=== PATIENT | male | born 1955 | race Caucasian/White ===

== ENCOUNTER → 2016-11-20 | Outpatient (CLI) | payer BC ==
[2016-11-20 17:18] LABS: BILIRUBIN,URINE NEGATIVE (NEG); CLARITY,URINE CLEAR (CLEAR); GLUCOSE, URINE (UA) NEGATIVE (NEG); LEUKOCYTE ESTERASE ,URINE NEGATIVE (NEG); NITRATE,URINE NEGATIVE (NEG); OCCULT BLOOD,URINE NEGATIVE (NEG); PH,URINE 5.5 (5.0-8.5); PROTEIN,URINE NEGATIVE (NEG); UROBILINOGEN,URINE 0.2 mg/dL (0.2)
[2016-11-20 17:44] LABS: URINE SAMPLE TYPE VOIDED SPECIMEN
[2016-11-20 17:45] LABS: RBC,URINE 0-1 /hpf
== END ==
LOC: LAB 15:04
PROVIDERS: ATTEND Internal Medicine
DX: I10 Essential (primary) hypertension (principal); I25.10 Atherosclerotic heart disease of native coronary artery without angina pectoris
CPT/HCPCS: 81001

== ENCOUNTER 2018-10-06 07:34 | Inpatient (IN) ==
[2018-10-06 06:35] LABS: BILIRUBIN,URINE NEGATIVE (NEG); CLARITY,URINE CLEAR (CLEAR); COLOR,URINE YELLOW (Y); GLUCOSE, URINE (UA) NEGATIVE (NEG); OCCULT BLOOD,URINE NEGATIVE (NEG); PH,URINE 5.5 (5.0-8.5); PROTEIN,URINE NEGATIVE (NEG); UROBILINOGEN,URINE 0.2 EU/dL (0.2)
[2018-10-06 06:47] LABS: URINE SAMPLE TYPE CLEAN CATCH URINE
[~2018-10-06 07:34] MED LIST: BUPIVACAINE SPINAL 7.5 MG/1 ML - 2 ML IV ONE; BUPivacaine Liposome/PF (Exparel) Inj 20ml vial INFIL ONE; CITRIC ACID/SODIUM CITRATE 30 ML CUP PO ONE; EPINEPHrine Inj (1:1,000) 1 mg/ml amp ONE; FAMOTIDINE 20 MG/2 ML VIAL IVP ONE; Gentamicin Inj 40 MG/ML VIAL ONE; HEPARIN 10,000 UNIT/1 ML ONE; Ketorolac Inj 30 MG, Morphine Inj (Ortho Cocktail) 5 MG, BUPivacaine Inj 0.25% PF 150 MG SPLASH ONE; LIDOCAINE W/ SODIUM BICARB 0.5 ML SYR ONE; LIDOCAINE W/ SODIUM BICARB 0.5 ML SYR SUBD ONE; LORazepam 2 MG/1 ML VIAL ONE; Lactated Ringers 1,000 ML PRIMARY IV ONE; Lactated Ringers 1,000 ML PRIMARY IV SCH; MIDAZOLAM 5 MG/1 ML ONE; MORPHINE SULFATE/PF 10 MG/10 ML AMPULE ONE; Nasal Sanitizer POPSWAB ampule 3 AMP (Nozin) PREOP DOSE ENOS SCH; Sodium Chloride 0.9% vial 40 ML ONE; Tranexamic Acid 3,000 MG in Sodium Chloride 0.9% 100 ML IRRIG ONE; ceFAZolin Inj 2gm (Premix) 2 GM/50 ML BAG IV ONE; fentaNYL Inj 250 MCG/5 ML VIAL ONE
[2018-10-06] MEDS ORDERED: Lactated Ringers 1,000 ML PRIMARY IV ONE ×2 (07:43→09:38)
[2018-10-06] MEDS ORDERED: PROPOFOL 10 MG/1 ML (200 MG/20 ML) VIAL IV ONE ×3 (08:01→10:16)
[2018-10-06] MEDS ORDERED: Sodium Chloride 0.9% 500 ML ONE ×2 (08:14→10:28)
[2018-10-06] MEDS ORDERED: TRANEXAMIC ACID 1,000 MG / 10 ML VIAL ONE (08:28)
[2018-10-06] MEDS ORDERED: ePHEDrine Inj 50 MG/ML AMP ONE ×2 (08:47→10:07)
[2018-10-06 11:23] LABS: Hematocrit [HCT] 37.9 % (42.0-52.0); Hemoglobin [HGB] 12.9 g/dL (14.0-18.0)
--- NOTE | 2018-10-06 11:36 | ORTHO.OP ---
- - -: See Dictated Operative Report Procedure Codes - Hip Procedures Primary Hip Procedure: 16383 : BECCA (sylvester preston and darren Aguirre MD assisted)
--- NOTE | 2018-10-06 12:16 | CONSULT ---
Consult Note - Consult Reason for Consult: PostOp Consulation : Ortho (cad) Primary Care Provider: Xenia Kauffman MD - History of Present Illness History of Present Illness: This very nice 62-year-old gentleman with past medical history significant for coronary artery disease in the past and a subdural hematoma secondary to horse accident. Comes in for severe right hip pain and underwent right total hip replacement. Patient denies any chest pain nausea vomiting and is doing pretty good postop Past Medical History Medical History: Hypertension, history of asthma Surgical History: Craniotomy for subdural hematoma Pertinent Family History: No premature heart disease in his family Tobacco Use: Never Smoker In the Past 12 Months, Have Used or Abuse Any of the Following Substance: None Review of Systems - Review of Systems All Systems: Reviewed & No Additional Complaints Except as Stated - Respiratory Respiratory: DENIES: Negative System Review, Cough, Sputum, Dyspnea At Rest, Dyspnea with Exertion, Pleuritic Pain, Hemoptysis, Wheezing, Other, See HPI - Cardiovascular Cardiovascular: DENIES: Negative System Review, Chest Pain, Edema, Syncope, Palpitations, Orthopnea, Paroxysmal Nocturnal Dyspnea, Other, See HPI - Gastrointestinal Gastrointestinal / Abdominal: DENIES: Negative System Review, Nausea, Vomiting, Diarrhea, Constipation, Abdominal Pain, Bloody Stool, Poor Appetite, Heartburn, Regurgitation, Bloating, Lactose Intolerance, Melena, Bright Red Blood per Rectum, Other, See HPI Medication / Allergies Home Medications: Home Medications Medication Instructions Recorded Confirmed Type Zinc 1 tab PO DAILY 07/21/15 10/05/18 History sildenafil (antihypertensive) 20 20 mg PO QDAY #30 tab 12/25/17 10/05/18 Rx mg tablet allopurinol 300 mg tablet 300 mg PO DAILY #90 tab-cap 02/05/18 10/05/18 Rx amlodipine 5 mg tablet 5 mg PO DAILY #90 tab-cap 02/05/18 10/05/18 Rx metoprolol succinate ER 100 mg 100 mg PO DAILY #90 tab-cap 02/05/18 10/05/18 Rx tablet,extended release 24 hr montelukast 10 mg tablet 10 mg PO DAILY #90 tab-cap 02/05/18 10/05/18 Rx tamsulosin 0.4 mg capsule 0.4 mg PO DAILY #90 tab-cap 02/05/18 10/05/18 Rx terazosin 10 mg capsule 10 mg PO DAILY #90 tab-cap 02/05/18 10/05/18 Rx atorvastatin 40 mg tablet 40 mg PO DAILY #90 tab 02/10/18 10/05/18 Rx cetirizine 10 mg tablet 10 mg PO QD #90 tab-cap 02/10/18 10/05/18 Rx ranitidine 75 mg tablet 75 mg PO DAILY #90 tab-cap 02/10/18 10/05/18 Rx aspirin 81 mg tablet,delayed 81 mg PO QDAY tab 02/11/18 10/06/18 History release fluticasone 50 mcg/actuation nasal 1 spray INASL QDAY PRN 02/11/18 10/05/18 History spray,suspension olopatadine 0.2 % eye drops 1 drp OP Q24H 02/11/18 10/05/18 History valacyclovir 1 gram tablet 1,000 mg PO BID #20 tab 06/01/18 10/05/18 Rx Allergies/Adverse Reactions: Allergies Allergy/AdvReac Type Severity Reaction Status Date / Time No Known Allergies Allergy Verified 09/15/18 10:10 Exam - Vitals Vital Signs: Vital Signs Temperature 97.8 F Pulse Rate 59 Respiratory Rate 14 Blood Pressure 122/79 Pulse Ox 96 Oxygen Flow Rate RA Height 5 ft 11 in Weight 229 lb - General General Appearance: No Acute Distress, Cooperative - Eye Eye Exam: POSITIVE: Normal Appearance, PERRL, EOMI, No Scleral Icterus - Respiratory Respiratory Exam: POSITIVE: Clear to Auscultation - Bilaterally, Breathing Non Labored, Normal To Percussion, Normal to Percussion and Palpation - Cardiovascular Cardiovascular Exam: POSITIVE: RRR, No Murmur, No Clicks, No Gallops, No Rubs, PMI Non-Displaced - GI/Abdominal GI/Abdominal Exam: POSITIVE: Normal Bowel Sounds, Non Tender, Non Distended, Soft, No Masses, No Hepatomegaly, No Splenomegaly, No Organomegaly - Extremities Extremities Exam: POSITIVE: No Clubbing Present, No Edema Present, No Cyanosis Present Results - Labs CBC and BMP: 10/06/18 11:10 Assessment and Plan - Patient Problems (1) Status post right hip replacement Current Visit: Yes Status: Acute Comment: Defer to Dr. Leon for postop care PT OT and anticoagulation Code(s): Z96.641 - Presence of right artificial hip joint (2) Coronary arteriosclerosis Current Visit: No Status: Chronic Onset Date: 04/03/16 Comment: Stable continue current medications Code(s): I25.10 - Atherosclerotic heart disease of [place] coronary artery without angina pectoris (3) Essential hypertension Current Visit: No Status: Chronic Onset Date: 04/03/16 Comment: Continue current medications Code(s): I10 - Essential (primary) hypertension
[2018-10-06] MEDS ORDERED: ACETAMINOPHEN 325 MG TABLET PO PRN (12:31)
[2018-10-06] MEDS ORDERED: Prochlorperazine Tab 10 MG TAB PO PRN (12:31)
[2018-10-06] MEDS ORDERED: ONDANSETRON 4 MG/2 ML VIAL IVP PRN (12:31)
[2018-10-06] MEDS ORDERED: CALCIUM CARBONATE 500 MG (TUMS) CHEWABLE TABLET PO PRN (12:31)
[2018-10-06] MEDS ORDERED: Montelukast Tab 10 MG TAB PO SCH (12:31)
[2018-10-06] MEDS ORDERED: RANITIDINE HCL 75 MG PO SCH (12:31)
[2018-10-06] MEDS ORDERED: diphenhydrAMINE 25 MG CAPSULE PO PRN (12:31)
[2018-10-06] MEDS ORDERED: SILDENAFIL CITRATE 20 MG PO SCH (12:31)
[2018-10-06] MEDS ORDERED: ZINC PO SCH (12:31)
[2018-10-06] MEDS ORDERED: MAG HYDROX/AL HYDROX/SIMETH 30 ML SUSP PO PRN (12:31)
[2018-10-06] MEDS ORDERED: BISACODYL 10 MG SUPPOSITORY RECTAL PRN (12:31)
[2018-10-06] MEDS ORDERED: Ondansetron ODT Tab 8 MG TAB PO PRN (12:31)
[2018-10-06] MEDS ORDERED: AmLODIPine Tab 5 MG TABLET PO SCH (12:31)
[2018-10-06] MEDS ORDERED: VALACYCLOVIR HCL 1000 MG PO SCH (12:31)
[2018-10-06] MEDS ORDERED: METOPROLOL SUCCINATE 100 MG SR 24H TABLET PO SCH ×2 (12:31→16:30)
[2018-10-06] MEDS ORDERED: OLOPATADINE HCL OP SCH (12:31)
[2018-10-06] MEDS ORDERED: BISACODYL 5 MG TABLET PO PRN (12:31)
[2018-10-06] MEDS ORDERED: TAMSULOSIN 0.4 MG CAPSULE PO SCH (12:31)
[2018-10-06] MEDS ORDERED: ALLOPURINOL 300 MG TABLET PO SCH (12:31)
--- NOTE | 2018-10-06 12:57 | CRNA.PROCE ---
Central Neuraxis Block Placemt - - Safety Measures: Time Out Taken, Site Verified - - Type of Block: Subarachnoid (SAB in preop [id number]) Reason for Block: Surgical, Analgesia Moniters Used During Block: EKG, SPO2, NIBP Sedation Used - Enter Amount Used in Comment Field: Midazolam (mg): Yes (2), Fentanyl (mcg): Yes (50) Positioning: Sitting Skin Prep Used: ChloroPrep Draped: Yes Skin Infiltration - Enter Amount Used in Comment Field: 1% Xylocaine with Bicarb (mL): Yes (.5), 1% Xylocaine (mL): Yes (.5) Spinal Needle Used: 22 Keith 120 mm Local Anesthetic - Enter Amount Used in Comment Field: 0.75 % Bupivacaine with Dextrose (ml): Yes (2cc) Additive Used - Enter Amount Used in Comment Field: Preservative Free Morphine (mg): Yes (.2), Epinephrine 1:1000 Needle Rinse (mL): Yes (.2) Bioclusive Dressing Applied: No Anesthesia Time - Other Weight: 103.873 kg Height: 5 ft 11 in Body Mass Index (BMI): 31.9
--- NOTE | 2018-10-06 12:58 | CRNA.PROGR ---
Anesthesia Time - Procedure/Recovery Time Start Date: 10/06/18 Anesthesia : Time In: 07:42 Anesthesia : Time Out: 11:08 - Block Time Start Date: 10/06/18 PreOp Block : Time In: 07:12 PreOp Block : Time Out: 07:22 - Other Weight: 103.873 kg Height: 5 ft 11 in Body Mass Index (BMI): 31.9 Physical Status: P2 Anesthesia Type: Spinal Block, MAC
[2018-10-06] MEDS: Lactated Ringers 1,000 ML PRIMARY IV SCH (14:16)
[2018-10-06] MEDS: ceFAZolin Inj 2gm (Premix) 2 GM/50 ML BAG IV SCH (15:38)
--- NOTE | 2018-10-06 17:14 | ORTHO.PROG ---
Last Taken Vital Signs: Vital Signs - Last Taken Temperature 97.2 F 10/06/18 16:01 Pulse Rate 102 H 10/06/18 16:01 Respiratory Rate 18 10/06/18 16:01 Blood Pressure 101/69 10/06/18 16:01 Pulse Ox 94 10/06/18 16:01 Subjective: Patient standing with very little hip pain at current time, patient is using a walker and is assisted by therapy Objective: Intake and Output - 8hrs 10/05/18 10/06/18 10/06/18 10/06/18 21:59 05:59 13:59 21:59 Intake: IV 3300 / 3600 300 / 3600 Intake Oral Amount 240 / 240 Lunch 240 / 240 Output: Output, Drainage Amount 25 / 160 135 / 160 Right Hip 135 / 135 Right hip 25 / 25 Output, Urinary Catheter Amount 150 / 150 Output, Urine Amount 300 / 300 Output, Post Indwelling 30 / 30 Catheter Insertion Output, Estimated Blood Loss 250 / 250 Amount Other: Percent Meal Consumed Lunch 100% Drains Right hip Hemovac Other Output,Number of Bowel 1 Movements Number of Voids 1 Weight 103.873 kg Vital Signs (24 hrs) 10/06/18 07:30 10/06/18 10:57 10/06/18 11:02 Temperature 97.8 F 97.0 F Pulse Rate 59 L 72 80 Pulse Rate [Pulse Oximeter] Pulse Rate [Telemetry] Respiratory Rate 14 16 Blood Pressure 122/79 99/75 95/70 Blood Pressure [Right Arm] Pulse Ox 96 97 98 10/06/18 11:07 10/06/18 11:12 10/06/18 11:41 Temperature Pulse Rate 76 72 69 Pulse Rate [Pulse Oximeter] Pulse Rate [Telemetry] Respiratory Rate Blood Pressure 92/69 98/71 107/67 Blood Pressure [Right Arm] Pulse Ox 97 99 96 10/06/18 11:47 10/06/18 11:52 10/06/18 12:32 Temperature 96.9 F Pulse Rate 64 65 Pulse Rate [Pulse Oximeter] 77 Pulse Rate [Telemetry] 68 Respiratory Rate 17 Blood Pressure 104/72 101/72 Blood Pressure [Right Arm] 106/77 Pulse Ox 97 99 98 10/06/18 13:18 10/06/18 16:01 Temperature 97.1 F 97.2 F Pulse Rate Pulse Rate [Pulse Oximeter] 67 102 H Pulse Rate [Telemetry] Respiratory Rate 18 18 Blood Pressure Blood Pressure [Right Arm] 108/80 101/69 Pulse Ox 99 94 Patient's dressing clean and dry, negative pressure dressing in place no active issues. Hemovac is working. Azevedo is in place also. Bladder scan done because of sensation of fullness in the bladder revealed no fluid in the bladder. Motor and sensory exam is generally good in the lower extremity Assessment: Right total hip replacement overall doing well Plan: Patient will continue with physical therapy and occupational therapy, pain control was been good with the Duramorph spinal we have oral and IV medication pending as needed. DVT prophylaxis with pneumatic sequential devices and asp irin
[2018-10-06] MEDS: AMLODIPINE 5 MG PO SCH (20:41)
[2018-10-06] MEDS: TAMSULOSIN 0.4 MG PO SCH (20:41)
[2018-10-06] MEDS: METOPROLOL SUCCINATE 100 MG PO SCH (20:41)
[2018-10-06] MEDS: MONTELUKAST 10 MG PO SCH (20:41)
[2018-10-06] MEDS: DOCUSATE 100 MG CAPSULE PO SCH (20:42)
[2018-10-06] MEDS ORDERED: ATORVASTATIN 40 MG TABLET PO SCH (21:00)
[2018-10-07] MEDS: ceFAZolin Inj 2gm (Premix) 2 GM/50 ML BAG IV SCH (00:06)
[2018-10-07] MEDS: Lactated Ringers 1,000 ML PRIMARY IV SCH (00:06)
[2018-10-07] MEDS: HYDROcodone-APAP 7.5 MG-325 MG TABLET PO PRN ×6 (00:10→20:56)
[2018-10-07] MEDS: HYDROmorphone 2 MG/1 ML IVP PRN ×3 (01:31→21:20)
[2018-10-07 05:13] LABS: Hematocrit [HCT] 33.5 % (42.0-52.0); Hemoglobin [HGB] 11.2 g/dL (14.0-18.0); MEAN CORPUSCULAR HEMOGLOBIN 31.8 PG (27-31); MEAN CORPUSCULAR HGB CONC 33.4 g/dL (33-37); MEAN CORPUSCULAR VOLUME 95.2 FL (80-90); MEAN PLATELET VOLUME 10.8 FL (7.4-12.2); RED BLOOD COUNT 3.52 10^6/uL (4.70-6.10)
[2018-10-07 05:33] LABS: BLOOD UREA NITROGEN 20 mg/dL (7-22); BUN/CREATININE RATIO 18.18 (6-20)
--- NOTE | 2018-10-07 08:03 | ORTHO.PROG ---
Last Taken Vital Signs: Vital Signs - Last Taken Temperature 98.7 F 10/07/18 04:56 Pulse Rate 70 10/07/18 04:56 Respiratory Rate 16 10/07/18 00:58 Blood Pressure 120/74 10/07/18 04:56 Pulse Ox 96 10/07/18 04:56 Subjective: Patient doing well pain well controlled Objective: Patient with very minimal swelling of the leg dressings are placed drain is in place working. Motor and sensory exam is nonfocal with good pulses and brisk refill Laboratory Results 10/06/18 10/07/18 10/07/18 11:10 04:30 04:30 WBC 8.38 RBC 3.52 L Hgb 12.9 L 11.2 L Hct 37.9 L 33.5 L MCV 95.2 H MCH 31.8 H MCHC 33.4 RDW Std Deviation 42.1 RDW Coeff of Anjali 12.5 Plt Count 149 MPV 10.8 Sodium 138 Potassium 4.4 Chloride 102 Carbon Dioxide 30 Anion Gap 6 BUN 20 Creatinine 1.1 Estimated GFR > 60 BUN/Creatinine Ratio 18.18 Glucose 98 Calculated Osmolality 288.0 Calcium 8.4 L Intake and Output - 8hrs 10/06/18 10/06/18 10/07/18 10/07/18 13:59 21:59 05:59 13:59 Intake: IV 3300 / 4982 662 / 4982 1020 / 4982 Intake Oral Amount 240 / 4040 3400 / 4040 400 / 4040 Lunch 240 / 240 Output: Output, Drainage Amount 25 / 410 285 / 410 100 / 410 Right Hip 285 / 385 100 / 385 Right hip 25 / 25 Output, Urinary Catheter Amount 150 / 1425 125 / 1425 1150 / 1425 Output, Urine Amount 300 / 300 Output, Post Indwelling 30 / 30 Catheter Insertion Output, Estimated Blood Loss 250 / 250 Amount Other: Percent Meal Consumed Dinner 100% Lunch 100% Drains Right hip Hemovac Other Output,Number of Bowel 1 Movements Number of Voids 1 Weight 103.873 kg 104.372 kg Weight Measurement Method Built in [facility] Vital Signs (24 hrs) 10/06/18 10:57 10/06/18 11:02 10/06/18 11:07 Temperature 97.0 F Pulse Rate 72 80 76 Pulse Rate [Pulse Oximeter] Pulse Rate [Telemetry] Respiratory Rate 16 Blood Pressure 99/75 95/70 92/69 Blood Pressure [Right Arm] Pulse Ox 97 98 97 10/06/18 11:12 10/06/18 11:41 10/06/18 11:47 Temperature Pulse Rate 72 69 64 Pulse Rate [Pulse Oximeter] Pulse Rate [Telemetry] Respiratory Rate Blood Pressure 98/71 107/67 104/72 Blood Pressure [Right Arm] Pulse Ox 99 96 97 10/06/18 11:52 10/06/18 12:32 10/06/18 13:18 Temperature 96.9 F 97.1 F Pulse Rate 65 Pulse Rate [Pulse Oximeter] 77 67 Pulse Rate [Telemetry] 68 Respiratory Rate 17 18 Blood Pressure 101/72 Blood Pressure [Right Arm] 106/77 108/80 Pulse Ox 99 98 99 10/06/18 16:01 10/06/18 19:00 10/06/18 20:30 Temperature 97.2 F 97.6 F Pulse Rate Pulse Rate [Pulse Oximeter] 102 H 70 70 Pulse Rate [Telemetry] 68 Respiratory Rate 18 19 Blood Pressure Blood Pressure [Right Arm] 101/69 105/68 Pulse Ox 94 96 10/07/18 00:58 10/07/18 04:56 Temperature 98.6 F 98.7 F Pulse Rate Pulse Rate [Pulse Oximeter] 69 70 Pulse Rate [Telemetry] Respiratory Rate 16 Blood Pressure Blood Pressure [Right Arm] 116/63 120/74 Pulse Ox 96 96 Assessment: Right total hip replacement Postoperative anemia Plan: Patient will continue with physical therapy and occupational therapy. Pain control with oral and IV medications as needed. Continue with DVT prophylaxis with pneumatic sequential devices and aspirin. We will try to remove the drain at lunchtime approximately. The patient's drainage has decreased overnight. I certainly think we can move this at lunchtime.
[2018-10-07] MEDS: DOCUSATE 100 MG CAPSULE PO SCH ×2 (08:56→20:57)
[2018-10-07] MEDS: ASPIRIN 325 MG EC TABLET PO SCH ×2 (08:56→20:57)
[2018-10-07] MEDS: CETIRIZINE 10 MG PO SCH (08:57)
[2018-10-07] MEDS: TERAZOSIN 5 MG PO SCH (08:57)
[2018-10-07] MEDS: ALLOPURINOL 300 MG PO SCH (08:57)
[2018-10-07] MEDS ORDERED: LORATADINE 10 MG TABLET PO SCH (09:00)
[2018-10-07] MEDS ORDERED: Terazosin Cap 5 MG CAP PO SCH (09:00)
--- NOTE | 2018-10-07 09:40 | PDOC(PROG) ---
Interval History: Patient is doing well postop with no chest pain nausea or vomiting standing in the room with occupational therapy Objective : Data - Labs CBC and BMP: 10/07/18 04:30 10/07/18 04:30 Objective : Exam - General General Appearance: Cooperative - Respiratory Respiratory Exam: Clear to Auscultation - Bilaterally, Breathing Non Labored, Normal To Percussion, Normal to Percussion and Palpation - Cardiovascular Cardiovascular Exam: RRR, No Murmur, No Clicks, No Gallops, No Rubs, PMI Non- Displaced - GI/Abdominal GI/Abdominal Exam: Normal Bowel Sounds, Non Tender, Non Distended, Soft, No Mass es, No Hepatomegaly, No Splenomegaly, No Organomegaly - Extremities Extremities Exam: No Clubbing Present, No Edema Present, No Cyanosis Present Assessment and Plan - Patient Problems (1) Status post right hip replacement Current Visit: Yes Status: Acute Comment: Doing well drain still in place defer to Dr. Leon for postop management Code(s): Z96.641 - Presence of right artificial hip joint (2) Coronary arteriosclerosis Current Visit: No Status: Chronic Onset Date: 04/03/16 Comment: Stable continue beta glenys and calcium gentle glenys Code(s): I25.10 - Atherosclerotic heart disease of [place] coronary artery without angina pectoris (3) Essential hypertension Current Visit: No Status: Chronic Onset Date: 04/03/16 Comment: Stable at present time Code(s): I10 - Essential (primary) hypertension (4) Postoperative anemia Current Visit: Yes Status: Acute Comment: Mild Code(s): D64.9 - Anemia, unspecified
--- NOTE | 2018-10-07 12:14 | PTI REPORT ---
Thank you for the referral of Christopher Bartholomew. He was seen on 10/06/18 for an inpatient evaluation status post right total hip arthroplasty. SUBJECTIVE: The patient is a 62-year-old male who underwent a right total hip replacement with an anterior approach earlier today. The patient reports minimal pain and states that he has been up one time with nursing staff so far and he is doing well. He states he is looking forward to getting up and out of bed again as he states he is having difficulties with feeling like he needs to urinate and is unable to do so. The patient's orders from his doctor include that the patient is partial weight-bearing and he is to use a walker when he is up and weight- bear what he is able to tolerate at this time. The patient states that he lives here in [place] with his . He states that he was not using any assistive device prior to his surgery but was having increasing hip pain with walking and riding horses prior to his surgery. The patient also reports no falls over the last six months. The patient lives with his and states that they have 6 stairs to get into their house with bilateral hand railings. Once in the house there are a couple of steps up to the main floor. The patient states that his bedroom is in the basement and there are approximately 14 stairs to get down to the basement. He states that they live in an older home so the steps are fairly steep. He also states that the bathroom that he uses is in the basement area as well because it has a walk-in shower and a walk out basement that he is able to walk around the house to get in and out of; however, there is no pathway. The patient states that he has previously had ACL repairs on both knees, but no previous total joint replacements. PAST MEDICAL HISTORY: Past medical history can be found in the patient's medical record. OBJECTIVE FINDINGS: General observations: The patient was alert and oriented to setting upon PT arrival. The patient was on one liter of oxygen and his oxygen saturation was 89%. The patient states that he normally does not use oxygen. The patient did have a Prevena vac in place over the incision and also a drain in place. The patient did have plasma flow pumps on bilateral lower extremities; however, the one on the left lower extremity was not turned on as it was not charged all the way. The patient also did have an IV in place and a catheter. The patient's vitals were taken in a supine position. His blood pressure was 115/82. His heart rate was 74 beats per minute. Bed mobility: The patient was able to move from a supine to seated edge of bed position with assistance in order to manage his lines and leads. Once in a seated position, the patient demonstrated good edge of bed balance. His blood pressure was 111/83 and his heart rate was 79 beats per minute. The patient denied any lightheadedness or dizziness with sitting. Following treatment the patient moved from a seated to supine position with assistance to manage lines and leads. Activities of daily living: In a seated position the patient needed assistance in order to don both of his socks. Transfers: The patient transferred from a seated to standing position with verbal cueing to kick out his surgery side and to push off from the bed. The patient was able to do so with contact guard assist x1 and another assist for managing his lines and leads. In a standing position the patient's blood pressure was 106/70 and his heart rate was 86 beats per minute. The patient denied any lightheadedness or dizziness. The patient stood x1 minute and the walker was properly fit to the patient's height. The patient stated he would like to try walking. Following ambulation the patient transferred back into bed with contact guard assist x1 for safety and to manage the lines and leads. Ambulation: The patient was able to ambulate approximately 10 feet, but we were restricted due to where all the lines and leads were plugged in. ASSESSMENT: The patient has good rehab potential. Problem List: Patient is status post right total hip replacement Right hip pain Weakness Short-Term Goals: To be met by discharge from inpatient: Patient will be able to transfer from bed to stand safely and independently. Patient will be able to ambulate at least 150 feet with walker with appropriate weight-bearing status. Patient will be able to ascend and descend at least one flight of stairs safely and independently with use of walker. Long-Term Goals: To be met following discharge from inpatient: Patient may be seen by outpatient physical therapy if deemed necessary upon time of discharge. TREATMENT PLAN: Patient will be seen B.I.D during the week and one time per day over the weekend as an inpatient to address the above goals and objectives. INITIAL TREATMENT: Treatment today consisted of the initial evaluation and one unit of functional activity. Following treatment the patient transferred back into bed with contact guard assist x1 for safety and to manage the lines and leads. The patient then moved from a seated to supine position with assistance to manage lines and leads. Once in supine position, the bed alarm was set and call light was placed within reach. MARIA DE JESUS
--- NOTE | 2018-10-07 14:01 | DI ---
XR HIP COMPLETE MIN 2VW U/L 10/06/2018 7:37 AM History: [facility] [place]right hip replacement for osteoarthritis Comparison: 09/10/2018. Findings: AP view of the pelvis and AP/crosstable lateral views of the left hip demonstrate right tot al hip arthroplasty. Hardware is in expected position. There is no evidence of fracture or loosening. No acute fracture is noted. The tip of a drain projects over the left hip joint and surgical urbano are noted in the lateral soft tissues. There is gas in the soft tissues surrounding the hip, an expe cted finding in the immediate postoperative timeframe. Phleboliths project over the pelvis. There are degenerative changes of the lumbar spine. The soft tissues are otherwise unremarkable. Impression: 1. Status post right total hip arthroplasty without evidence of hardware complication or acute osseou s abnormality.
--- NOTE | 2018-10-07 15:57 | PT.PROG ---
Progress Note Progress Note: Subjective: Patient states he has been sore this morning. He isn't having a lot of pain, but he is eager to get up and walk. Objective: Patient ambulated 100ft and up and down a flight of steps with his four point walker. Patient worked on log rolling when transferring from sitting to supine. Assessment: Patient tolerated all activities well. He will continue to benefit from skilled therapy. Plan: Patient will be seen twice a day until discharge.
--- NOTE | 2018-10-07 17:38 | OT.PROG ---
Progress Note Progress Note: S: pt stated that he was a little tired from earlier but was ready for therapy. O: tx consisted of bed mobility with MIN A for sitting up at EOB, functional ambulation x15' with FWW and CGA for safety, toileting tasks and hygiene independently, donning UE and LE clothing independently. A: pt is doing very well but currently is having some difficulties with managing his pain. P: continue POC
[2018-10-07] MEDS: MONTELUKAST 10 MG PO SCH (20:58)
[2018-10-07] MEDS: TAMSULOSIN 0.4 MG PO SCH (20:58)
[2018-10-07] MEDS: AMLODIPINE 5 MG PO SCH (20:58)
[2018-10-07] MEDS: METOPROLOL SUCCINATE 100 MG PO SCH (20:58)
[2018-10-08] MEDS: HYDROcodone-APAP 7.5 MG-325 MG TABLET PO PRN ×4 (00:56→18:35)
[2018-10-08 04:54] LABS: Hematocrit [HCT] 33.1 % (42.0-52.0); Hemoglobin [HGB] 10.8 g/dL (14.0-18.0); MEAN CORPUSCULAR HEMOGLOBIN 31.3 PG (27-31); MEAN CORPUSCULAR HGB CONC 32.6 g/dL (33-37); MEAN CORPUSCULAR VOLUME 95.9 FL (80-90); MEAN PLATELET VOLUME 11.2 FL (7.4-12.2); RED BLOOD COUNT 3.45 10^6/uL (4.70-6.10)
[2018-10-08 05:28] LABS: BLOOD UREA NITROGEN 22 mg/dL (7-22); BUN/CREATININE RATIO 18.33 (6-20)
[2018-10-08] MEDS: DOCUSATE 100 MG CAPSULE PO SCH ×2 (08:24→21:29)
[2018-10-08] MEDS: ASPIRIN 325 MG EC TABLET PO SCH ×2 (08:25→21:29)
[2018-10-08] MEDS: TERAZOSIN 5 MG PO SCH (08:25)
[2018-10-08] MEDS: CETIRIZINE 10 MG PO SCH (08:26)
[2018-10-08] MEDS: ALLOPURINOL 300 MG PO SCH (08:26)
--- NOTE | 2018-10-08 09:52 | PT PM DAY ---
Diagnosis : Right Total Hip Arthroplasty PM - Physical Therapy S: The patient states his pain did get a bit out of control about mid day, but this afternoon he is doing well with medication. O: The patient ambulated all the way to the therapy department with use of a walker and stand by assist x1. He did very well. He was able to complete a flight of stairs. He performed therapeutic exercises and functional activities including heel slides, short arc quads, sit to stands, and boxes on the #3 box. A: If the patient continues to do well overnight, we will repeat the process and if tolerated well, we will advise discharge to home. P: Continue seeing patient BID during the week and one time per day over the weekend for transfers, ambulation, and range of motion/strengthening exercises. MARIA DE JESUS
--- NOTE | 2018-10-08 09:57 | PT.PROG ---
Progress Note Progress Note: Subjective:Patient states he doesn't have any pain this morning. He is eager to get home. Objective: Patient ambulated 150 ft from his room to the therapy department. He was seen for heat, and LE exercises consisting of short arc quads, heel slides, ankle pumps, long arc quads, and sit to stands. He also ambulated up and down a flight of stairs. Assessment: Patient tolerated all activities well. He was able to ambulate up the stairs with his walker with minimal cueing which is an improvement from yesterday. Plan: Patient will be seen by outpatient physical therapy following discharge.
--- NOTE | 2018-10-08 10:01 | OT.PROG ---
Progress Note Progress Note: S: pt reported that he slept rather well. He thinks he is staying ahead of the pain. He reported that his is sick and may not have anyone to help him when he returns home. O: pt was seen in his room and completed donning of socks using A.E belling machine operator and sock aid. He then stood Ind washed self with wipes. He then used belling machine operator to pick wipes off the floor INd. He doffed/donned UE clothing INd. He completed transfer downstairs INd with use of walker. He was placed on heat and PT took over therapy at that point. A: pt completed therapy well and used A.E effectively.
--- NOTE | 2018-10-08 10:19 | OTI REPORT ---
Thank you for the referral of Christopher Bartholomew. He was seen on 10/07/18 for an occupational therapy inpatient evaluation status post right total hip arthroplasty. SUBJECTIVE: The patient is a 62-year-old male who underwent a total hip arthroplasty with an anterior approach. Prior to admission the patient was independent with all ADLs. PAST MEDICAL HISTORY: Past medical history can be found in the patient's medical record. OBJECTIVE FINDINGS: Bed mobility: The patient was able to come from supine to sit with mod assist. While sitting edge of bed the patient was educated in his hip precautions. Pain: The patient does have some pain and difficulty with dressing lower extremities. Activities of daily living: The patient was issued adaptive equipment including a logistics support, sock aide, and a bath sponge. Instructions and demonstrations were given with the sock aide to don and doff clothes. The patient then practiced donning his pants, doffing socks with logistics support, and donning socks with the sock aide. Transfers: The patient was able to come from sit to stand with contact guard assist. He was able to stand x5 minutes without loss of balance. The patient transferred to the sink where he completed hygiene activities while in a standing position. The patient also completed a toilet transfer with contact guard assist. ASSESSMENT: Problem List: Decreased ability to complete activities of daily living Decreased ability to complete functional transfers Short-Term Goals: To be met by discharge from inpatient: Patient will be able to dress self with adaptive equipment independently. Patient will be able to complete all functional transfers including toilet transfers independently. Patient will follow all hip precautions. Long-Term Goals: To be met following discharge from inpatient: Patient will be independent and safe with all activities of daily living and functional activities at home. TREATMENT PLAN: Patient will be seen by OT at least one more time to go over adaptive devices. INITIAL TREATMENT: Treatment today consisted of the initial evaluation followed by instruction and demonstration of adaptive devices. MARIA DE JESUS
[2018-10-08] MEDS ORDERED: MORPHINE SULFATE 2 MG/1 ML IVP PRN (13:54)
--- NOTE | 2018-10-08 13:54 | ORTHO.PROG ---
Last Taken Vital Signs: Vital Signs - Last Taken Temperature 97.8 F 10/08/18 08:12 Pulse Rate 83 10/08/18 08:12 Respiratory Rate 20 10/08/18 08:12 Blood Pressure 109/62 10/08/18 08:12 Pulse Ox 90 10/08/18 08:12 Subjective: Patient notes he is progressing with therapy but is having trouble controlling pain with oral medication. Objective: Looking at the leg looks relatively benign mild swelling in the thigh region no calf or popliteal adductor hiatus pain. There is no pitting edema or swelling motor and sensory exam seems to be intact. The negative pressure dressing is in place seems to be working well. There is no drainage from old drain site. Laboratory Results 10/08/18 10/08/18 04:15 04:15 WBC 9.29 RBC 3.45 L Hgb 10.8 L Hct 33.1 L MCV 95.9 H MCH 31.3 H MCHC 32.6 L RDW Std Deviation 41.6 RDW Coeff of Anjali 12.4 Plt Count 147 MPV 11.2 Sodium 139 Potassium 4.7 Chloride 104 Carbon Dioxide 30 Anion Gap 5 BUN 22 Creatinine 1.2 Estimated GFR > 60 BUN/Creatinine Ratio 18.33 Glucose 101 Calculated Osmolality 290.0 Calcium 8.5 L Vital Signs (Last 8 hours) Temp Pulse Resp BP Pulse Ox 10/08/18 08:12 97.8 F 83 20 109/62 90 10/08/18 07:00 80 17 Assessment: Right total hip replacement Postoperative anemia Pain control issues Plan: Patient will continue with physical therapy and occupational therapy. We will continue with DVT prophylaxis with the portable pneumatic sequential some aspirin. I think the patient probably should not be going home today since he is having a fair amount of difficulty with the oral medication. I'm going to switch him to morphine to see if we can titrate his pain control better. We will hold discharge until tomorrow provided he is with better pain control
[2018-10-08] MEDS ORDERED: MORPHINE SULFATE 4 MG/1 ML IV PRN (14:30)
[2018-10-08] MEDS ORDERED: MORPHINE SULFATE 10 MG/1 ML IV PRN (14:30)
[2018-10-08] MEDS ORDERED: MORPHINE SULFATE 2 MG/1 ML IV PRN (14:30)
--- NOTE | 2018-10-08 14:44 | PDOC(PROG) ---
Interval History: The patient is doing very well ambulating with PT has no chest pain Objective : Data - Labs CBC and BMP: 10/08/18 04:15 10/08/18 04:15 Objective : Exam - General General Appearance: No Acute Distress, Cooperative - Respiratory Respiratory Exam: Clear to Auscultation - Bilaterally, Breathing Non Labored - Cardiovascular Cardiovascular Exam: RRR, No Murmur, No Clicks, No Gallops, No Rubs, PMI Non- Displaced - GI/Abdominal GI/Abdominal Exam: Normal Bowel Sounds, Non Tender, Non Distended, Soft, No Masses, No Hepatomegaly, No Splenomegaly, No Organomegaly Assessment and Plan - Patient Problems (1) Status post right hip replacement Current Visit: Yes Status: Acute Comment: Deferred Dr. Leon for pain control. Care Code(s): Z96.641 - Presence of right artificial hip joint (2) Coronary arteriosclerosis Current Visit: No Status: Chronic Onset Date: 04/03/16 Comment: We will continue beta glenys and calcium channel glenys Code(s): I25.10 - Atherosclerotic heart disease of [place] coronary artery without angina pectoris (3) Essential hypertension Current Visit: No Status: Chronic Onset Date: 04/03/16 Code(s): I10 - Essential (primary) hypertension (4) Postoperative anemia Current Visit: Yes Status: Acute Comment: Stabilized Code(s): D64.9 - Anemia, unspecified
--- NOTE | 2018-10-08 16:08 | PT.PROG ---
Progress Note Progress Note: S. Patient states that he is feeling better, he reports he still has some pain this afternoon. O. Patient ambulated 175 feet to the therapy gym where he had heat to his hip and then performed heel slides, quad sets, ankle pumps, short arc quads, glute sets, seated long arc quads, and sit to stands all x 15 bilaterally, Patient then ascended and descended 12 stairs and then ambulated 175 feet back to his room where he was left at the edge of bed with call light. A. Patient tolerated therapy well this afternoon, he would benefit from 1-2 more treatments at this time. P. Continue POC.
[2018-10-08] MEDS: METOPROLOL SUCCINATE 100 MG PO SCH (21:30)
[2018-10-08] MEDS: AMLODIPINE 5 MG PO SCH (21:30)
[2018-10-08] MEDS: TAMSULOSIN 0.4 MG PO SCH (21:31)
[2018-10-08] MEDS: MONTELUKAST 10 MG PO SCH (21:31)
[2018-10-09] MEDS: HYDROcodone-APAP 7.5 MG-325 MG TABLET PO PRN ×3 (02:13→11:35)
[2018-10-09 04:54] LABS: Hematocrit [HCT] 31.8 % (42.0-52.0); Hemoglobin [HGB] 10.5 g/dL (14.0-18.0); MEAN CORPUSCULAR HEMOGLOBIN 31.8 PG (27-31); MEAN CORPUSCULAR VOLUME 96.4 FL (80-90); MEAN PLATELET VOLUME 11.2 FL (7.4-12.2); RED BLOOD COUNT 3.3 10^6/uL (4.70-6.10)
[2018-10-09 05:05] LABS: BLOOD UREA NITROGEN 22 mg/dL (7-22)
[2018-10-09] MEDS: TERAZOSIN 5 MG PO SCH (10:08)
[2018-10-09] MEDS: ALLOPURINOL 300 MG PO SCH (10:08)
[2018-10-09] MEDS: CETIRIZINE 10 MG PO SCH (10:08)
[2018-10-09] MEDS: DOCUSATE 100 MG CAPSULE PO SCH (10:14)
[2018-10-09] MEDS: ASPIRIN 325 MG EC TABLET PO SCH (10:14)
--- NOTE | 2018-10-09 11:10 | DCSUMMARY ---
Hospitalization Summary Admit Date: 10/06/2018 Discharge Date: 10/09/18 Hospital Course: Discharge diagnoses 1. Status post right total hip replacement 2. History of hypertension 3. History of gout 4. History of coronary artery disease with previous stent 5. History of subdural hematoma status post surgery 2014 6. History of hyperlipidemia 7. History of asthma Hospital course This is a 62 years old male with medical history significant for history of coronary artery disease with previous stent, history of previous subdural hematoma status post surgery in 2014, hypertension, hyperlipidemia and asthma who came into the hospital to have a right hip replacement and was done by Dr. Stacy valencia. Postoperatively his course was uneventful, he started physical therapy we continued with the rest of his medication. For DVT prophylaxis he was put on aspirin. On the day of discharge I saw him for the first time he was doing well he was cleared by physical therapy and his pain was controlled with oral pain medication. He was seen earlier by Dr. Leon. He thought that could be discharged home . He seems to be stable so will Continue his previous home medications. He will be discharged on aspirin for DVT prophylaxis he normally takes aspirin twice a day. Dr. Leon wrote a pain medication prescription. Laboratory Results 10/09/18 10/09/18 04:10 04:10 WBC 7.20 RBC 3.30 L Hgb 10.5 L Hct 31.8 L MCV 96.4 H MCH 31.8 H MCHC 33.0 RDW Std Deviation 41.9 RDW Coeff of Anjali 12.4 Plt Count 141 MPV 11.2 Sodium 141 Potassium 4.3 Chloride 104 Carbon Dioxide 31 Anion Gap 6 BUN 22 Creatinine 1.0 Estimated GFR > 60 BUN/Creatinine Ratio 22.00 H Glucose 95 Calculated Osmolality 294.0 H Calcium 8.6 L Discharge instruction Diet regular Activity as started Medications Current Medication(s) Medication Instructions Recorded Confirmed Type Zinc 1 tab PO DAILY 07/21/15 10/05/18 History sildenafil (antihypertensive) 20 20 mg PO QDAY #30 tab 12/25/17 10/05/18 Rx mg tablet allopurinol 300 mg tablet 300 mg PO DAILY #90 tab-cap 02/05/18 10/05/18 Rx amlodipine 5 mg tablet 5 mg PO DAILY #90 tab-cap 02/05/18 10/05/18 Rx metoprolol succinate ER 100 mg 100 mg PO DAILY #90 tab-cap 02/05/18 10/05/18 Rx tablet,extended release 24 hr montelukast 10 mg tablet 10 mg PO DAILY #90 tab-cap 02/05/18 10/05/18 Rx tamsulosin 0.4 mg capsule 0.4 mg PO DAILY #90 tab-cap 02/05/18 10/05/18 Rx terazosin 10 mg capsule 10 mg PO DAILY #90 tab-cap 02/05/18 10/05/18 Rx atorvastatin 40 mg tablet 40 mg PO DAILY #90 tab 02/10/18 10/05/18 Rx cetirizine 10 mg tablet 10 mg PO QD #90 tab-cap 02/10/18 10/05/18 Rx ranitidine 75 mg tablet 75 mg PO DAILY #90 tab-cap 02/10/18 10/05/18 Rx aspirin 81 mg tablet,delayed 81 mg PO QDAY tab 02/11/18 10/06/18 History release fluticasone 50 mcg/actuation nasal 1 spray INASL QDAY PRN 02/11/18 10/05/18 History spray,suspension olopatadine 0.2 % eye drops 1 drp OP Q24H 02/11/18 10/05/18 History valacyclovir 1 gram tablet 1,000 mg PO BID #20 tab 06/01/18 10/05/18 Rx HYDROcodone/APAP 7.5/325 Tab 1 - 2 tab PO Q4H PRN #50 tab 10/09/18 Rx [[place] 7.5/325 Tab] hydrocodone 7.5 mg-acetaminophen See Rx Instructions PO Q6-8H PRN 10/09/18 Rx 325 mg tablet #50 tab Follow-up with Dr. Leon as scheduled, with PCP 1-2 weeks Condition at discharge was stable for discharge Exam - Vitals Vital Signs: Vital Signs Temperature 97.3 F Temperature Source Temporal Artery Scan Pulse Rate [Telemetry] 80 Pulse Rate [Pulse Oximeter] 72 Pulse Rate 65 Respiratory Rate 18 Blood Pressure [Right Arm] 113/68 Blood Pressure 101/72 Pulse Ox 93 Oxygen Flow Rate 1 Oxygen Delivery Method Room Air Height 5 ft 11 in Weight 234 lb 6.4 oz - General General Appearance: No Acute Distress, Cooperative - Head Head Exam: Normal Inspection - Eye Eye Exam: POSITIVE: Normal Appearance - ENT ENT Exam: POSITIVE: Normal Exam - Neck Neck Exam: Normal Inspection - Respiratory Respiratory Exam: POSITIVE: Clear to Auscultation - Bilaterally - Cardiovascular Cardiovascular Exam: POSITIVE: RRR - GI/Abdominal GI/Abdominal Exam: POSITIVE: Normal Bowel Sounds, Non Tender, Non Distended, Soft, No Organomegaly - Rectal Rectal Exam: POSITIVE: Deferred - External Exam: POSITIVE: Deferred Exam: POSITIVE: Deferred - Extremities Additional Extremities Exam Details: No edema. Dressing applied to the wound. Which is dry. - Back Back Exam: POSITIVE: Normal Inspection - Neurological Neurological Exam: POSITIVE: Alert, Oriented x 3, CN II-XII Intact, Speech Intact / Clear - Psychiatric Psychiatric Exam: POSITIVE: Normal Affect
--- NOTE | 2018-10-09 11:37 | PT.PROG ---
Progress Note Progress Note: S. Patient stated that he feels ready to go home today. O. Patient ambulated 175 feet to the therapy gym where he had heat on his hip then performed heel slides, quad sets, ankle pumps, short arc quads, ball squeezes, clam shells all x 15, seated long arc quads x 15 with 1 minute hold x 2, Patient performed sit to stands x 10 then used the nu-step x 10 minutes. Patient ascended and descended 23 stairs and ambulated 175 feet back to his room where he was left with call light. A. Patient tolerated therapy well, he has met all inpatient goals at this time. He would benefit from outpatient therapy at this time. P. Continue POC until Discharge.
== END 2018-10-09 11:42 | disposition home or self-care (01) | DRG 470 ==
LOC: OPS 07:34 → MED/SURG 12:02
PROVIDERS: ADMIT Orthopaedic Surgery; ATTEND Orthopaedic Surgery